=== PATIENT | female | born 2000 | race Caucasian/White ===

== ENCOUNTER 2021-07-18 08:36 | Emergency (ER) | payer OTHER ==
[~2021-07-18] VITALS: Ht 152.4 cm; Wt 71.2 kg
--- NOTE | 2021-07-18 08:40 | NUR ---
Patient to ER bed 3 to gown for evaluation. Side rails up. Report given to ROBERT FAROOQ.
[2021-07-18 08:46] VITALS: BP_SYST 133
--- NOTE | 2021-07-18 08:54 | NUR ---
20 YR OLD AOX4, AMBULATORY FEMALE WITH HX OF HTN. PT STATES SHE MISSED ONE DOSE OF A PRESCRIBED HTN MEDICATION (LABETALOL 100MG BID) ONE DAY AGO. PT REPORTS FEELING HER LEFT HAND AND ARM NUMB FOR ABOUT 4 HOURS. PT DENIES ANY CHEST PAIN, NAUSEA OR VOMITING. PT IS ACCOMPANIED BY HER MOTHER. 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
--- NOTE | 2021-07-18 09:00 | NUR ---
ER at bedside examining patient.
[2021-07-18 10:57] VITALS: BP_SYST 131
--- NOTE | 2021-07-18 10:59 | NUR ---
Patient given written and verbal discharge instructions and verbalizes understanding. ER MD discussed with patient the results and treatment provided. Patient in stable condition. ID arm band removed. Patient educated on pain management and to follow up with PMD. Pain Scale . Opportunity for questions provided and answered. Medication side effect fact sheet provided.
== END 2021-07-18 10:57 | disposition home or self-care (01) ==
LOC: SED 08:36
DX: R20.0 Anesthesia of skin (principal); I10 Essential (primary) hypertension; Z88.5 Allergy status to narcotic agent
CPT/HCPCS: 93005; 99283